=== PATIENT | male | born 1975 | race Caucasian/White ===

== ENCOUNTER 2019-08-04 17:15 | Observation (INO) ==
--- NOTE | 2019-08-04 18:13 | CT Scan Report ---
CT head/brain wo con CLINICAL HISTORY: Head pain status post trauma COMPARISON STUDY: No previous studies for comparison. TECHNIQUE: Axial CT of the brain is performed from the vertex to the skull base. IV contrast was not administered for this examination. A dose lowering technique was utilized adhering to the principles of ALARA. CT DOSE: 1009.93 mGy.cm FINDINGS: No intra or extra-axial mass lesions are visualized. There is no CT evidence of acute cortical infarc tion. There is no evidence of midline shift. There is no acute hemorrhage. No calvarial fractures ar e visualized. There is no evidence of pathologic ventricular dilatation. There is no evidence of acute sinusitis IMPRESSION: No acute intracranial findings Electronically signed by: Wander Artis M.D. 08/04/2019 6:12 PM
[2019-08-04 18:14] LABS: Albumin Level 4.1 gm/dl (3.4-5.0); Aspartate Aminotransferase 25 U/L (15-37); Blood Urea Nitrogen 12 mg/dl (7-18); Calcium 9.3 mg/dl (8.5-10.1); Carbon Dioxide 25 mmol/L (21-32); Chloride 105 mmol/L (98-107); Creatinine Clr Calc Pharmacy 83.4 ml/min; Est GFR (African American) 76.4; Est GFR (Non-African American) 65.9; Glucose 85 mg/dl (70-99); Potassium 3.6 mmol/L (3.5-5.1); Sodium 139 mmol/L (136-145)
--- NOTE | 2019-08-04 18:15 | CT Scan Report ---
CT OF THE CERVICAL SPINE CLINICAL HISTORY: Neck pain status post trauma COMPARISON STUDY: No previous studies for comparison. CT DOSE: TECHNIQUE: CT scan of the cervical spine was performed from the skull base to the thoracic inlet. Kathia ges are reviewed in the axial, sagittal, and coronal planes. IV contrast was not administered for thi s examination. A dose lowering technique was utilized adhering to the principles of ALARA. FINDINGS: The visualized portions of the lung apices reveal no evidence of pneumothorax. The prevertebral soft tissues are normal. No fractures or subluxations are visualized. There are multilevel degenerative changes, with prominent anterior osteophytes at the C3-4, C4-5, C5- 6 levels. IMPRESSION: No evidence of acute fracture or traumatic subluxation. Electronically signed by: Wander Artis M.D. 08/04/2019 6:14 PM
[2019-08-04 18:17] LABS: Alanine Aminotransferase 25 U/L (12-78); Albumin Globulin Ratio 1.2 (0.9-2); Alkaline Phosphatase 52 U/L (45-117); Bilirubin,Total 0.4 mg/dl (0.2-1); Globulin 3.4 gm/dl (2.5-4.0); Total Protein 7.5 gm/dl (6.4-8.2)
--- NOTE | 2019-08-04 18:40 | XRay Report ---
XR chest 1V portable CLINICAL HISTORY: Chest pain status post trauma COMPARISON STUDY: No previous studies for comparison. FINDINGS: The cardiac and mediastinal contours are normal. There is no evidence of focal pulmonary co nsolidation. There is no evidence of failure. No pleural effusions are visualized.[No pneumothorax is visualized. IMPRESSION: No active disease in the chest. Electronically signed by: Wander Artis M.D. 08/04/2019 6:39 PM
[2019-08-04] MEDS ORDERED: SODIUM CHLORIDE 0.9% 1000ML 1,000 ML IV SCH (18:45)
[2019-08-04 18:59] LABS: Magnesium 2.1 mg/dl (1.8-2.4)
[2019-08-04 19:17] LABS: Troponin I < 0.015 ng/ml (0-0.045)
[2019-08-04 20:04] LABS: Appearance Urine Clear (Clear); Bilirubin Urine Negative (Negative); Blood Urine Negative (Negative); Color Urine Yellow; Glucose Urine UA Negative (Negative); Ketones Urine Negative (Negative); Leukocyte Esterase Urine Negative (Negative); Nitrite Urine Negative (Negative); Protein Urine Negative (Negative); Specific Gravity Urine 1.006 (1.000-1.030); Urobilinogen Urine Negative (Negative)
[2019-08-04 20:23] LABS: Amphetamines+Metham, Urine Neg (Neg); Barbiturates, Urine Neg (Neg); Benzodiazepine, Urine Neg (Neg); Cocaine, Urine Neg (Neg); MDMA (Ecstacy), Urine Neg (Neg); Methadone, Urine Neg (Neg); Opiate, Urine Neg (Neg); Phencyclidine, Urine Neg (Neg)
[2019-08-04 21:28] LABS: Basophils # (auto) 0.01 K/uL (0-0.2); Basophils % (auto) 0.1 %; Eosinophils # (auto) 0.02 K/uL (0-0.5); Eosinophils % (auto) 0.2 %; Hematocrit (blood only) 38.7 % (42-52); Hemoglobin 13.9 g/dL (14.0-18.0); Immature Granulocytes # (auto) 0.01 K/uL (0.00-0.02); Immature Granulocytes % (auto) 0.1 %; Lymphocytes # (auto) 0.87 K/uL (1.2-3.4); Lymphocytes % (auto) 8.9 %; Mean Corpuscular Hemoglobin 31.4 pg (25-34); Mean Corpuscular Hgb Conc 35.9 g/dL (32-36); Mean Corpuscular Volume 87.6 fL (80-100); Mean Platelet Volume 12.9 fL (7.4-10.4); Monocytes # (auto) 0.39 K/uL (0.11-0.59); Neutrophils # (auto) 8.46 K/uL (1.4-6.5); Neutrophils % (auto) 86.7 %; Platelet Count 130 K/uL (130-400); Platelet Estimate Decreased (Normal); RDW Coefficient of Variation 12.8 % (11.5-14.5); RDW Standard Deviation 41.5 fL (36.4-46.3); Red Blood Count 4.42 M/uL (4.7-6.1); White Blood Count 9.76 K/uL (4.8-10.8)
--- NOTE | 2019-08-04 21:44 | Emergency Department Note ---
Entered by Kell Avery acting as a scribe for Be Leon DO History of Present Illness General Chief complaint: Fall Stated complaint: FALL, ETOH Source: patient History of Present Illness Onset (ago): minute(s) (prior to arrival) Location: head (general) Pain Consistency: + other (episode) Maximum Pain Intensity: 6 Quality: + other (fall) Associated symptoms: + other (no memory of fall or alcohol consumption); no nausea/vomiting The patient is a 44 year old male who presents to the Emergency Room following an episode of a fall that occurred in the [employer] lots prior to arrival. The patient states he doesn't remember what happened, or how much he drank today. The patient denies any pain, nausea, and vomiting. He reports a history of tobacco and alcohol use and a history of knee surgery. He denies taking any medication. 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 and A total of 10 systems reviewed and were otherwise negative Physical Exam Vital Signs Vital Signs - 24 hr 08/04/19 17:21 08/04/19 19:07 Temperature 37.0 C Temperature Source Oral Sepsis Recent Fever Within 48 Hours No Sepsis Action Taken by Nursing No Action Required Pulse Rate 89 Pulse Rhythm Regular Pulse Strength Normal Respiratory Rate 16 Respiratory Effort / Characteristics Non-Labored Respiratory Depth Normal Respiratory Pattern Regular Blood Pressure 130/92 Blood Pressure Mean 104 Blood Pressure Position Lying Pulse Oximetry 100 98 Oxygen Delivery Method Room Air Room Air GENERAL: Patient is awake, alert, and in no acute distress.Patient is resting comfortably and showing no signs of anxiety EYES: Bilateral conjunctiva injection. The pupils are equal, round and reactive to light. EARS, NOSE, MOUTH AND THROAT: The nose is without any evidence of any deformity. Mucous membranes are moist.Tongue is midline NECK: The neck is nontender and supple. RESPIRATORY: Normal respiratory effort is noted. There is no evidence of wheezi ng rhonchi or rales to auscultation. CARDIOVASCULAR: Regular rate and rhythm noted. There no murmurs rubs or gallops normal S1 normal S2 GASTROINTESTINAL: The abdomen is soft. Bowel sounds are present in all quadrants. Abdomen is nontender. BACK: No midline tenderness or or step-off noted range of motion in flexion extension as well as rotation no signs of muscle spasm noted. MUSCULOSKELETAL/EXTREMITIES: Abrasions noted on right hand. There is no evidence of gross deformity. Full range of motion is noted in the hips and shoulders. SKIN: There is no obvious evidence of any rash. There are no petechiae, pallor or cyanosis noted. NEUROLOGIC: Patient is awake and alert to person and place, but confused about recent occurrences. Patient cannot recall address. Strength is symmetric. Patellar reflexes are 2+ bilaterally. Course 1739: Past medical records reviewed. The patient was evaluated in room A09B. A complete history and physical exam was performed. 1836: Upon reevaluation, the patient was still confused. 2138: Upon reevaluation, the patient was still confused. He was continually asking how he got to the ER. I discussed findings and results with the patient and his friends. 2154: Upon reevaluation, I discussed findings and results with the patient and his friends. They verbalized agreement of the treatment plan. I spoke with Dr. Perez of the [facility] Hospitalist Service. The patient will be evaluated for further management and care. Administered Medications Discontinued Medications Aspirin (Ecotrin Ectab) 81 mg PO QAM [facility] Stop: 09/04/19 08:59 Last Admin: 08/05/19 07:50 Dose: 81 mg Documented by: [id number] Sodium Chloride (Nss 1000ml) 1,000 mls @ 999 mls/hr IV .Q1H1M ANT Stop: 08/04/19 19:45 Last Infusion: 08/04/19 20:22 Dose: 0 mls/hr Documented by: [id number] Admin: 08/04/19 19:09 Dose: 999 mls/hr Documented by: [id number] Medical Decision Making Differential Diagnosis Differential diagnosis includes etiologies such as alcohol intoxication, toxicologic, infection, hypoglycemia, electrolyte abnormalities, cardiac so urces, intracerebral event, neurologic, as well as others were entertained. Medical Records Attestation: I reviewed the patient's medical records. Home Medications Current Medication List: was personally reviewed by me Laboratory Data Attestation: I reviewed the patient's lab results. Result diagrams: 08/04/19 20:32 08/04/19 17:45 Lab Results 08/04/19 08/04/19 08/04/19 Range/Units 17:45 17:45 17:45 WBC (4.8-10.8) K/uL RBC (4.7-6.1) M/uL Hgb (14.0-18.0) g/dL Hct (42-52) % MCV (80-100) fL MCH (25-34) pg MCHC (32-36) g/dL RDW Std Deviation (36.4-46.3) fL RDW Coeff of Lonnie (11.5-14.5) % Plt Count (130-400) K/uL MPV (7.4-10.4) fL Immature Gran % (Auto) % Neut % (Auto) % Lymph % (Auto) % [place] % (Auto) % Eos % (Auto) % Baso % (Auto) % Immature Gran # (Auto) (0.00-0.02) K/uL Neut # (Auto) (1.4-6.5) K/uL Lymph # (Auto) (1.2-3.4) K/uL [place] # (Auto) (0.11-0.59) K/uL Eos # (Auto) (0-0.5) K/uL Baso # (Auto) (0-0.2) K/uL Platelet Estimate (Normal) Sodium 139 (136-145) mmol/L Potassium 3.6 (3.5-5.1) mmol/L Chloride 105 (98-107) mmol/L Carbon Dioxide 25 (21-32) mmol/L Anion Gap 9.0 (3-11) BUN 12 (7-18) mg/dl Creatinine 1.30 (0.6-1.4) mg/dl Est Cr Clr Drug Dosing 83.4 ml/min Est GFR ( Amer) 76.4 Est GFR (Non-Af Amer) 65.9 BUN/Creatinine Ratio 9.0 L (10-20) Glucose 85 (70-99) mg/dl POC Glucose (70-99) Calcium 9.3 (8.5-10.1) mg/dl Magnesium 2.1 Cancelled (1.8-2.4) mg/dl Total Bilirubin 0.4 (0.2-1) mg/dl AST 25 (15-37) U/L ALT 25 (12-78) U/L Alkaline Phosphatase 52 (45-117) U/L Troponin I < 0.015 Cancelled (0-0.045) ng/ml Total Protein 7.5 (6.4-8.2) gm/dl Albumin 4.1 (3.4-5.0) gm/dl Globulin 3.4 (2.5-4.0) gm/dl Albumin/Globulin Ratio 1.2 (0.9-2) TSH 4.440 Cancelled (0.300-4.500) uIu/ml Urine Color Urine Appearance (Clear) Urine pH (4.5-7.5) Ur Specific [place] (1.000-1.030) Urine Protein (Negative) Urine Glucose (UA) (Negative) Urine Ketones (Negative) Urine Blood (Negative) Urine Nitrite (Negative) Urine Bilirubin (Negative) Urine Urobilinogen (Negative) Ur Leukocyte Esterase (Negative) Urine Opiates Screen (Neg) Ur Methadone, Qual (Neg) Urine Barbiturates (Neg) Ur Phencyclidine (PCP) (Neg) U Amphetamin/Meth Scrn (Neg) MDMA (Ecstasy) Screen (Neg) U Benzodiazepines Scrn (Neg) Ur Cocaine Metabolite (Neg) U Marijuana (THC) Screen (Neg) Ethyl Alcohol mg/dL 104.7 H (0-3) mg/dl 08/04/19 08/04/19 08/04/19 Range/Units 17:57 19:52 19:52 WBC (4.8-10.8) K/uL RBC (4.7-6.1) M/uL Hgb (14.0-18.0) g/dL Hct (42-52) % MCV (80-100) fL MCH (25-34) pg MCHC (32-36) g/dL RDW Std Deviation (36.4-46.3) fL RDW Coeff of Lonnie (11.5-14.5) % Plt Count (130-400) K/uL MPV (7.4-10.4) fL Immature Gran % (Auto) % Neut % (Auto) % Lymph % (Auto) % [place] % (Auto) % Eos % (Auto) % Baso % (Auto) % Immature Gran # (Auto) (0.00-0.02) K/uL Neut # (Auto) (1.4-6.5) K/uL Lymph # (Auto) (1.2-3.4) K/uL [place] # (Auto) (0.11-0.59) K/uL Eos # (Auto) (0-0.5) K/uL Baso # (Auto) (0-0.2) K/uL Platelet Estimate (Normal) Sodium (136-145) mmol/L Potassium (3.5-5.1) mmol/L Chloride (98-107) mmol/L Carbon Dioxide (21-32) mmol/L Anion Gap (3-11) BUN (7-18) mg/dl Creatinine (0.6-1.4) mg/dl Est Cr Clr Drug Dosing ml/min Est GFR ( Amer) Est GFR (Non-Af Amer) BUN/Creatinine Ratio (10-20) Glucose (70-99) mg/dl POC Glucose 80 (70-99) Calcium (8.5-10.1) mg/dl Magnesium (1.8-2.4) mg/dl Total Bilirubin (0.2-1) mg/dl AST (15-37) U/L ALT (12-78) U/L Alkaline Phosphatase (45-117) U/L Troponin I (0-0.045) ng/ml Total Protein (6.4-8.2) gm/dl Albumin (3.4-5.0) gm/dl Globulin (2.5-4.0) gm/dl Albumin/Globulin Ratio (0.9-2) TSH (0.300-4.500) uIu/ml Urine Color Yellow Urine Appearance Clear (Clear) Urine pH 7.0 (4.5-7.5) Ur Specific [place] 1.006 (1.000-1.030) Urine Protein Negative (Negative) Urine Glucose (UA) Negative (Negative) Urine Ketones Negative (Negative) Urine Blood Negative (Negative) Urine Nitrite Negative (Negative) Urine Bilirubin Negative (Negative) Urine Urobilinogen Negative (Negative) Ur Leukocyte Esterase Negative (Negative) Urine Opiates Screen Neg (Neg) Ur Methadone, Qual Neg (Neg) Urine Barbiturates Neg (Neg) Ur Phencyclidine (PCP) Neg (Neg) U Amphetamin/Meth Scrn Neg (Neg) MDMA (Ecstasy) Screen Neg (Neg) U Benzodiazepines Scrn Neg (Neg) Ur Cocaine Metabolite Neg (Neg) U Marijuana (THC) Screen Neg (Neg) Ethyl Alcohol mg/dL (0-3) mg/dl 08/04/19 Range/Units 20:32 WBC 9.76 (4.8-10.8) K/uL RBC 4.42 L (4.7-6.1) M/uL Hgb 13.9 L (14.0-18.0) g/dL Hct 38.7 L (42-52) % MCV 87.6 (80-100) fL MCH 31.4 (25-34) pg MCHC 35.9 (32-36) g/dL RDW Std Deviation 41.5 (36.4-46.3) fL RDW Coeff of Lonnie 12.8 (11.5-14.5) % Plt Count 130 (130-400) K/uL MPV 12.9 H (7.4-10.4) fL Immature Gran % (Auto) 0.1 % Neut % (Auto) 86.7 % Lymph % (Auto) 8.9 % [place] % (Auto) 4.0 % Eos % (Auto) 0.2 % Baso % (Auto) 0.1 % Immature Gran # (Auto) 0.01 (0.00-0.02) K/uL Neut # (Auto) 8.46 H (1.4-6.5) K/uL Lymph # (Auto) 0.87 L (1.2-3.4) K/uL [place] # (Auto) 0.39 (0.11-0.59) K/uL Eos # (Auto) 0.02 (0-0.5) K/uL Baso # (Auto) 0.01 (0-0.2) K/uL Platelet Estimate Decreased L (Normal) Sodium (136-145) mmol/L Potassium (3.5-5.1) mmol/L Chloride (98-107) mmol/L Carbon Dioxide (21-32) mmol/L Anion Gap (3-11) BUN (7-18) mg/dl Creatinine (0.6-1.4) mg/dl Est Cr Clr Drug Dosing ml/min Est GFR ( Amer) Est GFR (Non-Af Amer) BUN/Creatinine Ratio (10-20) Glucose (70-99) mg/dl POC Glucose (70-99) Calcium (8.5-10.1) mg/dl Magnesium (1.8-2.4) mg/dl Total Bilirubin (0.2-1) mg/dl AST (15-37) U/L ALT (12-78) U/L Alkaline Phosphatase (45-117) U/L Troponin I (0-0.045) ng/ml Total Protein (6.4-8.2) gm/dl Albumin (3.4-5.0) gm/dl Globulin (2.5-4.0) gm/dl Albumin/Globulin Ratio (0.9-2) TSH (0.300-4.500) uIu/ml Urine Color Urine Appearance (Clear) Urine pH (4.5-7.5) Ur Specific [place] (1.000-1.030) Urine Protein (Negative) Urine Glucose (UA) (Negative) Urine Ketones (Negative) Urine Blood (Negative) Urine Nitrite (Negative) Urine Bilirubin (Negative) Urine Urobilinogen (Negative) Ur Leukocyte Esterase (Negative) Urine Opiates Screen (Neg) Ur Methadone, Qual (Neg) Urine Barbiturates (Neg) Ur Phencyclidine (PCP) (Neg) U Amphetamin/Meth Scrn (Neg) MDMA (Ecstasy) Screen (Neg) U Benzodiazepines Scrn (Neg) Ur Cocaine Metabolite (Neg) U Marijuana (THC) Screen (Neg) Ethyl Alcohol mg/dL (0-3) mg/dl Imaging Data Radiologist's Impression: Radiology results as stated below per my review and the radiologist's interpretation: CT OF THE CERVICAL SPINE CLINICAL HISTORY: Neck pain status post trauma COMPARISON STUDY: No previous studies for comparison. CT DOSE: TECHNIQUE: CT scan of the cervical spine was performed from the skull base to the thoracic inlet. Images are reviewed in the axial, sagittal, and coronal planes. IV contrast was not administered for this examination. A dose lowering technique was utilized adhering to the principles of ALARA. FINDINGS: The visualized portions of the lung apices reveal no evidence of pneumothorax. The prevertebral soft tissues are normal. No fractures or subluxations are visualized. There are multilevel degenerative changes, with prominent anterior osteophytes at the C3-4, C4-5, C5-6 levels. IMPRESSION: No evidence of acute fracture or traumatic subluxation. Electronically signed by: Wander Artis M.D. 08/04/2019 6:[address] head/brain wo con CLINICAL HISTORY: Head pain status post trauma COMPARISON STUDY: No previous studies for comparison. TECHNIQUE: Axial CT of the brain is performed from the vertex to the skull base. IV contrast was not administered for this examination. A dose lowering technique was utilized adhering to the principles of ALARA. CT DOSE: 1009.93 mGy.cm FINDINGS: No intra or extra-axial mass lesions are visualized. There is no CT evidence of acute cortical infarction. There is no evidence of midline shift. There is no acute hemorrhage. No calvarial fractures are visualized. There is no evidence of pathologic ventricular dilatation. There is no evidence of acute sinusitis IMPRESSION: No acute intracranial findings Electronically signed by: Wander Artis M.D. 08/04/2019 6:12 PM XR chest 1V portable CLINICAL HISTORY: Chest pain status post trauma COMPARISON STUDY: No previous studies for comparison. FINDINGS: The cardiac and mediastinal contours are normal. There is no evidence of focal pulmonary consolidation. There is no evidence of failure. No pleural effusions are visualized.[No pneumothorax is visualized. IMPRESSION: No active disease in the chest. Electronically signed by: Wander Artis M.D. 08/04/2019 6:39 PM ECG Data Attestation: I personally reviewed and interpreted this ECG as follows: Indication: altered mental status Rate (beats per minute): 87 Findings: + RBBB (incomplete); no PAC, no PVC and no ectopy Comparison ECG Date: no prior available Blood Pressure Blood Pressure Findings: Elevated blood pressure Blood Pressure Disposition: further management by hospitalist Head Trauma GCS Score: 14 MDM Narrative The patient is a 44-year-old male who presented to the emergency department for an evaluation after a fall. The patient had a witnessed fall [place] for [place]gating. Initially it was felt that the patient was intoxicated but he was able to answer questions appropriately and only. Confused about minor details. He did have repetitive questioning. The patient did not appear to have any acute ab normality on CAT scan of the head or neck. He was reevaluated multiple times and I do not feel that his presentation as well as his neurologic deficits are secondary to alcohol use alone. I do feel the patient may have had a very significant concussion at this time. I discussed the patient's condition with him. Given his ongoing symptoms and the fact that he still not at his baseline mental status I discussed his case with the on-call [facility] hospitalist. They have agreed to evaluate the patient in the emergency department for further management disposition. Impression & Plan Concussion, Memory loss, short term, Syncope Discharge Plan Visit Data *Final* Discharge Date/Time: 08/04/19 22:49 Chief Complaint: Fall Stated Complaint: FALL, ETOH ED Provider: Be Leon Discharge Problem: Concussion, Memory loss, short term, Syncope Patient Disposition: Admitted As Inpatient Condition: Good Discharge Instructions Interventions: ED Discharge Assessment Last Done: 08/04/19 22:49 The scribe's documentation has been prepared under my direction and personally reviewed by me in its entirety. I confirm that the note above accurately reflects all work, treatment, procedures, and medical decision making performed by me.
--- NOTE | 2019-08-04 22:36 | History & Physical Report ---
Date of Service August 04, 2019 Assessment & Plan (1) Syncope and collapse: Unclear etiology at this point. His friends who are with him at this time, report that the fall was described to them as the patient crumpling down and then landing on the ground. It does not appear that he had a slip and fall and bumped his head. He will therefore need to be assessed for possible cardiogenic or neurologic source to the fall itself. Patient has no focal deficits, and denies headaches, nausea, vomiting or abnormal sensory issues. Present on Admission?: Yes (2) Concussion: Patient with symptoms of concussion and short-term memory loss. Admit to monitored bed to follow for possible arrhythmia. CT of head and cervical spine negative for acute event. Neurochecks per protocol q4h. Patient reports that he is too claustrophobic to undergo MRI of brain. Consult neurology. Present on Admission?: Yes (3) Memory loss, short term: See above Present on Admission?: Yes (4) Lumbar degenerative disc disease: History of L4-5 discectomy, with no residual deficits per patient. Present on Admission?: Yes History of Present Illness Chief Complaint: The patient presents to the emergency department after being found on the ground by friends during the [employer] lot tailgating. Primary Care Provider: NO PCP The patient is a 44-year-old male with a past medical history including L4-5 discectomy with no residual deficit, who had a fall while at the [employer] football game in the tailgating parking lot. His friends are with him report that they were told by people directly saw the fall that he crumpled to the ground. It is unclear whether he actually hit his head. The patient himself has no recollection of the events prior to the fall, and has difficulty remembering any events happened after a fall and up to the moment of her conversation. He has not had any previous occurrence of these events, and reports that of his family members, including 3 siblings, there have been no neurologic or heart related issues that he is aware of. Allergies Allergy/AdvReac Type Severity Reaction Status Date / Time No Known Allergies Allergy Unverified 08/04/19 17:47 Home Medications Home Medications Medication Instructions Recorded Confirmed Type No Known Home Medications 08/04/19 08/04/19 History Past Med/Surg History Medical History No pertinent past medical history Surgical History Hx of knee surgery Social History Preferred Language: Samoan Feels Safe at Home: Yes Smoking Status: Never smoker Review of Systems Review of Systems: The patient denies chest pain, palpitations, shortness of breath, dyspnea on exertion, cough, lower extremity swelling, sore throat, fevers, chills, sweats, weight change, fatigue, nausea, vomiting, diarrhea , constipation, abdominal pain, pelvic pain, blood in urine or stool, dysuria, urinary frequency or urgency, lightheadedness, dizziness, headache, rash, abnormal bruising or bleeding, imbalance, focal or generalized weakness, numbness or tingling in arms or legs, generalized arthralgias or myalgias, back or neck pain, or night sweats. The review of systems is otherwise negative other than for that already noted above, and at least 10 systems have been reviewed. Physical Exam Physical Exam: The patient is awake, alert and oriented 3, well developed and well nourished, normocephalic and atraumatic, lying in bed and in no acute distress. HEENT--PERRL, EOMI, mucous membranes and oropharynx normal. Neck--supple. No JVD. No bruits. Thyroid normal, trachea midline, no adenopathy. Heart--normal S1 and S2. No murmurs, rubs or gallops. Lungs--clear bilaterally, no respiratory distress, no accessory muscle use. Abdomen--normal bowel sounds and soft. Nontender. Nondistended, no hernias or masses, no organomegaly. Extremities--no cyanosis or clubbing. No edema. There are good distal pulses b/l. Dermatologic--normal skin turgor, normal color, no abnormal lymph nodes, no rash. Neurologic--cranial nerves II through XII grossly intact. Memory deficits as described. Rheumatologic--normal range of motion. Psychiatric--normal affect. Results & Data Vital Signs (Past 12 Hours) Vital Signs Temp Pulse Resp BP Pulse Ox 08/04/19 19:07 98 08/04/19 17:21 98.6 F 89 16 130/92 100 Laboratory Results Laboratory Results WBC 9.76 K/uL (4.8-10.8) 08/04/19 20: RBC 4.42 M/uL (4.7-6.1) L 08/04/19 20:32 Hgb 13.9 g/dL (14.0-18.0) L 08/04/19 20:32 Hct 38.7 % (42-52) L 08/04/19 20:32 MCV 87.6 fL (80-100) 08/04/19 20: MCH 31.4 pg (25-34) 08/04/19 20: MCHC 35.9 g/dL (32-36) 08/04/19 20: RDW Std Deviation 41.5 fL (36.4-46.3) 08/04/19: RDW Coeff of Lonnie 12.8 % (11.5-14.5) 08/04/19 20: Plt Count 130 K/uL (130-400) 08/04/19 20: MPV 12.9 fL (7.4-10.4) H 08/04/19 20:32 Immature Gran % (Auto) 0.1 % 08/04/19 20:32 Neut % (Auto) 86.7 % 08/04/19 20:32 Lymph % (Auto) 8.9 % 08/04/19 20:32 [place] % (Auto) 4.0 % 08/04/19 20:32 Eos % (Auto) 0.2 % 08/04/19: Baso % (Auto) 0.1 % 08/04/19: Immature Gran # (Auto) 0.01 K/uL (0.00-0.02) 08/04/19 20: Neut # (Auto) 8.46 K/uL (1.4-6.5) H 08/04/19 20:32 Lymph # (Auto) 0.87 K/uL (1.2-3.4) L 08/04/19 20:32 Alpine # (Auto) 0.39 K/uL (0.11-0.59) 08/04/19 20: Eos # (Auto) 0.02 K/uL (0-0.5) 08/04/19: Baso # (Auto) 0.01 K/uL (0-0.2) 08/04/19 20:32 Platelet Estimate Decreased (Normal) L 08/04/19 20:32 Sodium 139 mmol/L (136-145) 08/04/19 17:45 Potassium 3.6 mmol/L (3.5-5.1) 08/04/19 17:45 Chloride 105 mmol/L (98-107) 08/04/19 17:45 Carbon Dioxide 25 mmol/L (21-32) 08/04/19 17:45 Anion Gap 9.0 (3-11) 08/04/19 17:45 BUN 12 mg/dl (7-18) 08/04/19 17:45 Creatinine 1.30 mg/dl (0.6-1.4) 08/04/19 17:45 Est Cr Clr Drug Dosing 83.4 ml/min 08/04/19 17:45 Est GFR ( Amer) 76.4 08/04/19 17:45 Est GFR (Non-Af Amer) 65.9 08/04/19 17:45 BUN/Creatinine Ratio 9.0 (10-20) L 08/04/19 17:45 Glucose 85 mg/dl (70-99) 08/04/19 17:45 POC Glucose 80 (70-99) 08/04/19 17:57 Calcium 9.3 mg/dl (8.5-10.1) 08/04/19 17:45 Magnesium 2.1 mg/dl (1.8-2.4) 08/04/19 17:45 Magnesium Cancelled 08/04/19 17:45 Total Bilirubin 0.4 mg/dl (0.2-1) 08/04/19 17:45 AST 25 U/L (15-37) 08/04/19 17:45 ALT 25 U/L (12-78) 08/04/19 17:45 Alkaline Phosphatase 52 U/L (45-117) 08/04/19 17:45 Troponin I < 0.015 ng/ml (0-0.045) 08/04/19 17:45 Troponin I Cancelled 08/04/19 17:45 Total Protein 7.5 gm/dl (6.4-8.2) 08/04/19 17:45 Albumin 4.1 gm/dl (3.4-5.0) 08/04/19 17:45 Globulin 3.4 gm/dl (2.5-4.0) 08/04/19 17:45 Albumin/Globulin Ratio 1.2 (0.9-2) 08/04/19 17:45 TSH 4.440 uIu/ml (0.300-4.500) 08/04/19 17:45 TSH Cancelled 08/04/19 17:45 Urine Color Yellow 08/04/19 19:52 Urine Appearance Clear (Clear) 08/04/19 19:52 Urine pH 7.0 (4.5-7.5) 08/04/19 19:52 Ur Specific [place] 1.006 (1.000-1.030) 08/04/19 19:52 Urine Protein Negative (Negative) 08/04/19 19:52 Urine Glucose (UA) Negative (Negative) 08/04/19 19:52 Urine Ketones Negative (Negative) 08/04/19 19:52 Urine Blood Negative (Negative) 08/04/19 19:52 Urine Nitrite Negative (Negative) 08/04/19 19:52 Urine Bilirubin Negative (Negative) 08/04/19 19:52 Urine Urobilinogen Negative (Negative) 08/04/19 19:52 Ur Leukocyte Esterase Negative (Negative) 08/04/19 19:52 Urine Opiates Screen Neg (Neg) 08/04/19 19:52 Ur Methadone, Qual Neg (Neg) 08/04/19 19:52 Urine Barbiturates Neg (Neg) 08/04/19 19:52 Ur Phencyclidine (PCP) Neg (Neg) 08/04/19 19:52 U Amphetamin/Meth Scrn Neg (Neg) 08/04/19 19:52 MDMA (Ecstasy) Screen Neg (Neg) 08/04/19 19:52 U Benzodiazepines Scrn Neg (Neg) 08/04/19 19:52 Ur Cocaine Metabolite Neg (Neg) 08/04/19 19:52 U Marijuana (THC) Screen Neg (Neg) 08/04/19 19:52 Ethyl Alcohol mg/dL 104.7 mg/dl (0-3) H 08/04/19 17:45 Diagnostic Findings [facility], [place] [phone] CT Scan Report Patient: BASILIO LIGHT AAdmit Date: 08/04/19 MR#: [id number]: [address] [facility] Acct ID:[id number]: Date: 1975[facility] Zip: [place] [address] Age: 44Location: ED Sex: M Room/Bed: Att Phy:Diagnosis: FALL, ETOH Elidia Phy: PCP,NOService Date: 08/04/19 Fam Phy:Interpreting Phy: Wander Artis MD Admit Phy: Ordering Phy: Be Leon DO cc: ~ CT head/brain wo con CLINICAL HISTORY: Head pain status post trauma COMPARISON STUDY: No previous studies for comparison. TECHNIQUE: Axial CT of the brain is performed from the vertex to the skull base. IV contrast was not administered for this examination. A dose lowering technique was utilized adhering to the principles of ALARA. CT DOSE: 1009.93 mGy.cm FINDINGS: No intra or extra-axial mass lesions are visualized. There is no CT evidence of acute cortical infarction. There is no evidence of midline shift. There is no acute hemorrhage. No calvarial fractures are visualized. There is no evidence of pathologic ventricular dilatation. There is no evidence of acute sinusitis IMPRESSION: No acute intracranial findings Electronically signed by: Wander Artis M.D. 08/04/2019 6:12 PM Dictated: 08/04/19 [address] [place], [place] [phone] XRay Report Patient: BASILIO LIGHT AAdmit Date: 08/04/19 MR#: [id number]: [address] [facility] Acct ID:[id number]: Date: 1975[facility] Zip: [place] [address] Age: 44Location: ED Sex: M Room/Bed: Att Phy:Diagnosis: FALL, ETOH Elidia Phy: PCP,NOService Date: 08/04/19 Francis Phy:Interpreting Phy: Wander Artis MD Admit Phy: Ordering Phy: Be Leon DO cc: ~ XR chest 1V portable CLINICAL HISTORY: Chest pain status post trauma COMPARISON STUDY: No previous studies for comparison. FINDINGS: The cardiac and mediastinal contours are normal. There is no evidence of focal pulmonary consolidation. There is no evidence of failure. No pleural effusions are visualized.[No pneumothorax is visualized. IMPRESSION: No active disease in the chest. Electronically signed by: Wander Artis M.D. 08/04/2019 6:39 PM Dictated: 08/04/191837 Transcribed: 08/04/191837 [facility] [place] [phone] CT Scan Report Patient: BASILIO LIGHT AAdmit Date: 08/04/19 MR#: [id number]: [address] [facility] Acct ID:[id number]: Date: [address] Zip: [place] [address] Age: 44Location: ED Sex: M Room/Bed: Att Phy:Diagnosis: FALL, ETOH Elidia Phy: PCP,NOService Date: 08/04/19 Fam Phy:Interpreting Phy: Wander Artis MD Admit Phy: Ordering Phy: Be Leon DO cc: ~ CT OF THE CERVICAL SPINE CLINICAL HISTORY: Neck pain status post trauma COMPARISON STUDY: No previous studies for comparison. CT DOSE: TECHNIQUE: CT scan of the cervical spine was performed from the skull base to the thoracic inlet. Images are reviewed in the axial, sagittal, and coronal planes. IV contrast was not administered for this examination. A dose lowering technique was utilized adhering to the principles of ALARA. FINDINGS: The visualized portions of the lung apices reveal no evidence of pneumothorax. The prevertebral soft tissues are normal. No fractures or subluxations are vi sualized. There are multilevel degenerative changes, with prominent anterior osteophytes at the C3-4, C4-5, C5-6 levels. IMPRESSION: No evidence of acute fracture or traumatic subluxation. Electronically signed by: Wander Artis M.D. 08/04/2019 6:14 PM Dictated: 08/04/191811 Transcribed: 08/04/191811 Code Status & VTE Plan Code Status Full code VTE Prophylaxis Plan VTE Prophylaxis will be ordered: Yes PG Care Time/CCT Total # of Minutes Spent Total Time Spent with Patient: Total time spent is greater than 50% in coordination of care (as documented) at patient's floor/unit and/or counseling patient:
[2019-08-04] MEDS ORDERED: ACETAMINOPHEN 325 MG TAB PO PRN (23:40)
[2019-08-04] MEDS ORDERED: ONDANSETRON INJ 2 MG/ML 2 ML VIAL IV PRN (23:40)
--- NOTE | 2019-08-05 08:12 | Discharge Summary ---
Date of Service August 05, 2019 Admission HPI Per Admitting Provider The patient is a 44-year-old male with a past medical history including L4-5 discectomy with no residual deficit, who had a fall while at the [employer] football game in the [employer] parking lot. His friends are with him report that they were told by people directly saw the fall that he crumpled to the ground. It is unclear whether he actually hit his head. The patient himself has no recollection of the events prior to the fall, and has difficulty remembering any events happened after a fall and up to the moment of her conversation. He has not had any previous occurrence of these events, and reports that of his family members, including 3 siblings, there have been no neurologic or heart related issues that he is aware of. Admission Exam Per Admitting Provider The patient is awake, alert and oriented 3, well developed and well nourished, normocephalic and atraumatic, lying in bed and in no acute distress. HEENT--PERRL, EOMI, mucous membranes and oropharynx normal. Neck--supple. No JVD. No bruits. Thyroid normal, trachea midline, no adenopathy. Heart--normal S1 and S2. No murmurs, rubs or gallops. Lungs--clear bilaterally, no respiratory distress, no accessory muscle use. Abdomen--normal bowel sounds and soft. Nontender. Nondistended, no hernias or masses, no organomegaly. Extremities--no cyanosis or clubbing. No edema. There are good distal pulses b/l. Dermatologic--normal skin turgor, normal color, no abnormal lymph nodes, no rash. Neurologic--cranial nerves II through XII grossly intact. Memory deficits as described. Rheumatologic--normal range of motion. Psychiatric--normal affect. Principal Diagnosis Alcohol intoxication Pre-syncope Discharge Exam Constitutional WD/WN, vitals as above Eyes PERRL, conjunctivae normal, anicteric sclerae ENMT external ear and nose normal, oropharynx normal Neck normal visual inspection and trachea midline Respiratory normal respiratory effort, lungs clear to auscultation Cardiovascular RRR, no murmur, no edema Gastrointestinal (Abdomen) normal bowel sounds, soft, nontender, no hepatosplenomegaly Musculoskeletal no cyanosis or clubbing, extremities motor strength 5/5 Skin no rashes, warm and dry Neurologic CN's II-XI intact bilaterally, moves all extremities and awake; no focal motor deficits and not confused Motor/Sensory: no tremor, no pronator drift and no sensory deficit Gait: no shuffling gait and no wide-based gait Coordination: normal [id number] test and normal [id number] test Psychiatric A+Ox3, euthymic affect Discharge Data Allergies Allergy/AdvReac Type Severity Reaction Status Date / Time No Known Allergies Allergy Unverified 08/04/19 17:47 Consultations 08/04/19 21:39 ED Decision to Admit Stat 08/04/19 23:40 Consult Case Management - Discharge Planning Routine Consult Neurology Routine Ordered Studies 08/04/19 17:40 CT cervical spine wo con Stat CT head/brain wo con Stat Hospital Course (1) Alcohol intoxication: Pre-syncopal, not syncopal event as per friends with him today. Patient does not have recollection but also doesn't drink as much alcohol as he did yesterday at the football game. Back to his normal self this morning. Requesting discharge as his friends need to drive him back to [place] this morning. CT head, c-spine, CXR, UA, UDS and routine labs unremarkable. Ethyl alcohol 104.7 mg/dL 17:45 08/04. (2) Memory loss, short term: Suspect from alcohol intoxication alone. No current signs/symptoms of concussion (3) Lumbar degenerative disc disease: History of L4-5 discectomy, with no residual deficits per patient. Total Time Total Time Spent Total Time Spent (In Minutes): 45 Total Time Includes: Examination of the Patient, Discharge Planning and Me dication Reconciliation Discharge Plan Discharge Items Patient Disposition: Home - Self-Care Reason For Visit: COLLAPSE,CONCUSSION Discharge Diagnosis: Alcohol intoxication Pre-syncope Condition on Discharge: Good Activity: Resume your previous activity Lifting: Gradually increase as tolerated Exercise/Sports: Rest today and Gradually increase as tolerated Non-emergency contact: Primary Care Provider Call non-emergency contact if: you have any medication questions and your symptoms worsen Follow-up/Referrals: PCP,NO [Primary Care Provider] - Diet: Regular Addtl Attending Provider Instructions: You were observed overnight after a pre-syncopal event. No abnormal heart rhythms observed on telemetry. EKG showed normal sinus rhythm. CT head and c ervical spine normal. CXR and urine analysis normal. Alcohol intoxication level 104.7 mg/dl. Suspect this was the cause of your pre-syncopal event. You were instructed not to drive for the rest of the day. Please follow up with your PCP in the next 1-2 weeks. Please see below for concussion symptoms and management. Pending Studies at Discharge: No Studies:: CT OF THE CERVICAL SPINE CLINICAL HISTORY: Neck pain status post trauma COMPARISON STUDY: No previous studies for comparison. CT DOSE: TECHNIQUE: CT scan of the cervical spine was performed from the skull base to the thoracic inlet. Images are reviewed in the axial, sagittal, and coronal planes. IV contrast was not administered for this examination. A dose lowering technique was utilized adhering to the principles of ALARA. FINDINGS: The visualized portions of the lung apices reveal no evidence of pneumothorax. The prevertebral soft tissues are normal. No fractures or subluxations are visualized. There are multilevel degenerative changes, with prominent anterior osteophytes at the C3-4, C4-5, C5-6 levels. IMPRESSION: No evidence of acute fracture or traumatic subluxation. XR chest 1V portable CLINICAL HISTORY: Chest pain status post trauma COMPARISON STUDY: No previous studies for comparison. FINDINGS: The cardiac and mediastinal contours are normal. There is no evidence of focal pulmonary consolidation. There is no evidence of failure. No pleural effusions are visualized.[No pneumothorax is visualized. IMPRESSION: No active disease in the chest. CT head/brain wo con CLINICAL HISTORY: Head pain status post trauma COMPARISON STUDY: No previous studies for comparison. TECHNIQUE: Axial CT of the brain is performed from the vertex to the skull base. IV contrast was not administered for this examination. A dose lowering technique was utilized adhering to the principles of ALARA. CT DOSE: 1009.93 mGy.cm FINDINGS: No intra or extra-axial mass lesions are visualized. There is no CT evidence of acute cortical infarction. There is no evidence of midline shift. There is no acute hemorrhage. No calvarial fractures are visualized. There is no evidence of pathologic ventricular dilatation. There is no evidence of acute sinusitis IMPRESSION: No acute intracranial findings Stand-Alone Forms: [facility] [employer] Medications and DC Order Prescriptions: No Action No Known Home Medications RF: 0 Discharge Orders: Discharge Order (Routine); Ordered 08/05/19 Ordered By: Quentin Nolasco/Other Patient Handouts: Concussion, Syncope, Syncope Causes Admission Data Admit Date/Time: 08/04/19 22:33 Attending Provider: Quentin Siu Admit Provider: Usman Perez Primary Care Provider: PCP,SATYA Other Providers: Usman Perez Other Interventions: Discharge Summary Assessment (RN) Last Done: 08/05/19 08:43 DC Date/Time DO NOT enter until pt leaves facility: 08/05/19 09:02
[2019-08-05] MEDS ORDERED: ASPIRIN 81 MG ECTAB PO SCH (09:00)
== END 2019-08-05 09:02 | disposition home or self-care (01) ==
LOC: ED 17:15 → 2S 17:15 → SUATTDRO 22:33 → 2S 22:49